=== PATIENT | male | born 1960 ===

== ENCOUNTER 2022-11-09 11:45 | Outpatient (CLI) | payer OTHER, SELFPAY ==
--- NOTE | 2022-11-09 11:57 | US_ITS ---
WS: [id number] ULTRASOUND THYROID TECHNIQUE: Ultrasound of the thyroid. CLINICAL INFORMATION: DISORDER OF THYROID GLAND COMPARISON: None. FINDINGS: Thyroid: Markedly enlarged heterogeneous RIGHT thyroid lobe. Dominant nodule in the mid thyroid measu res 6.4 x 3.5 x 8.2 CM. No other discrete nodules. Right thyroid lobe: 8.4 cm x 5.0 cm x 3.8 cm Left thyroid lobe: 3.6 cm x 1.7 cm x 1.6 cm. Small complex cystic LEFT inferior thyroid nodule measuring 5.4 mm with associated calcification. Isthmus: 0.2 mm. Cervical lymphadenopathy: None. US/US thyroid [id number] IMPRESSION: 1. Heterogeneous masslike enlargement of the RIGHT thyroid lobe compatible wit h goiter 2. Dominant nodule occupying the majority of the RIGHT thyroid lobe measuring 6.4 x 3.5 x 8.2 cm 3. Small complex cystic LEFT inferior thyroid nodule measuring 5.4 mm with ass ociated calcification. Recommend 12 month follow-up.
== END 2022-11-09 11:46 | disposition home or self-care (01) ==
PROVIDERS: PCP Nurse Practitioner; Visit Provider Nurse Practitioner
DX: E04.9 Nontoxic goiter, unspecified (principal)
CPT/HCPCS: 76536